=== PATIENT | female | born 1990 | race Caucasian/White ===

== ENCOUNTER 2019-08-02 11:47 | Emergency (ER) | payer MEDICAID, SELFPAY ==
--- NOTE | 2019-08-02 11:52 | W.ED.EXTPRO ---
HPI - Extremity Problem General: Chief complaint: Extremity Problem,Nontraumatic Stated complaint: L LEG PAIN Time Seen by Provider: 08/02/19 11:52 Source: patient Mode of arrival: ambulatory Limitations: no limitations History of Present Illness: HPI Narrative: 29-year-old female comes in today with left lower extremity pain. Patient reports pain since [place] with difficulty with ambulating at home. Patient reports that the pain is constant. Patient appears well. Patient appears in no acute distress. Patient is 35 weeks Review of Systems General: Reports: 10 or more systems reviewed and unremarkable except in HPI and below Musc: Reports: extremity pain PFSH ED PFSH: Social History Smoking and tobacco status: never smoked Physical Exam Const: COMMON NORMALS: no apparent distress and oriented x3 GENERAL APPEARANCE: cooperative HENMT: COMMON NORMALS: normocephalic, external ears normal, EAC's normal, TM's normal bilaterally and external nose normal HEAD & SCALP: normal to inspection and normocephalic FACE & SINUS: normal facial exam NOSE: external nose normal GENERAL EAR: hearing not grossly impaired EXTERNAL EAR: Yes external ears normal EXTERNAL AUDITORY CANAL: EAC's normal TYMPANIC MEMBRANE: TM's normal bilaterally MOUTH: oral and palatal mucosa normal THROAT: posterior oropharynx normal Eye: COMMON NORMALS: PERRL and EOMs intact bilaterally PUPIL: Yes PERRL Neck/C-Spine: COMMON NORMALS: full ROM and no lymphadenopathy Lymph: LYMPHATIC: no lymphedema noted Chest: COMMONS NORMALS: inspection of chest normal and palpation of chest normal Resp: COMMON NORMALS: normal respiratory effort and clear to auscultation bilaterally AUSCULTATION: clear to auscultation bilaterally Cardio: COMMON NORMALS: regular rate and regular rhythm RATE: regular rate RHYTHM: regular rhythm GI: COMMON NORMALS: normal to inspection, nondistended, normoactive bowel sounds and non-tender : COMMON NORMALS: Yes no CVA tenderness BLADDER/KIDNEY EXAM: Yes no CVA tenderness Back/Pelvis: COMMON NORMALS: no CVA tenderness and thoracic and lumbar spine normal to inspection Extremity: NARRATIVE EXTREMITY EXAM: Palpable tender nodule to the left posterior knee. No significant lower extremity edema or redness. Pulses are intact. Prompt capillary refill is noted distally. Patient is weightbearing with no difficulty with ambulation. GENERAL: Yes edema (mild left lower leg) Neuro: COMMON NORMALS: oriented x3, moves all extremities and no focal motor deficits Psych: COMMON NORMALS: mental status grossly normal and cooperative Skin: COMMON NORMALS: no rashes or lesions noted GENERAL SKIN EXAM: no rashes or lesions noted Course Vital Signs: Vital signs: Vital Signs Temperature 98.1 F 08/02/19 11:53 Pulse Rate 103 H 08/02/19 12:02 Respiratory Rate 16 08/02/19 12:19 Blood Pressure 122/82 08/02/19 12:02 Pulse Oximetry 100 08/02/19 12:02 MDM - Extremity (Nontraumatic) MDM Narrative: Medical decision making narrative: Patient comes in for increased pain and discomfort to the posterior knee of the left leg. Patient reported sudden onset of symptoms with minimal relief since it occurred on Saturday. On exam we feel light palpable nodule to the posterior left knee. No obvious redness and minimal swelling is noted to the lower extremity. Vital signs are normal. Differential diagnosis include but not limited to DVT, inflamed varicose vein, Barraza's cyst. Ultrasound of the extremity ruled out DVT and Barraza's cyst. Patient has some mild venous insufficiency that was noted on the ultrasound. I believe patient probably has a mild varicosity that is become inflamed or aneurysm causing the nodule to appear in the posterior left knee. Reviewed exam with patient with recommendations for further treatment and evaluation. Patient reports understanding. Discharge Plan Discharge Patient Disposition: Home, Self-Care Clinical Impression: Venous (peripheral) insufficiency Varicose vein leg preg-unsp Qualifiers: Trimester: third trimester Qualified Code(s): O22.03 - Varicose veins of lower extremity in , third trimester Condition: Stable Prescriptions: No Action Tylenol Extra Strength 500 mg Tablet 1,000 mg PO PRN RF: 0 famotidine 20 mg tablet 20 mg PO BID RF: 0 omeprazole 20 mg capsule,delayed release(DR/EC) 20 mg PO DAILY RF: 0 28 mg iron- 800 mcg Tablet 1 tab PO DAILY RF: 0 [place] (PF) See Rx Instructions .ROUTE .COMPLEX RF: 0 Discharge Orders: Discharge Order (Routine); Ordered 08/02/19 Ordered By: Hang Calderon Discharge Diet: Usual diet Discharge Activity: Increase activity as tolerated Patient Instructions: Varicose Veins (ED) Activity Restrictions/Additional Instructions: Wear good supportive stocking or hose Ice or heat to area for pain control Acetaminophen as needed for pain Elevate legs when sitting Drink plenty of water Follow-up with primary care Return to ER for worsening symptoms, high fever, or increased redness and swelling to lower leg Coding Level of Care Code ED Choral Director for Chg Fwd Exam Comprehensive
[2019-08-02 11:53] VITALS: BP 122/82; PULSE 103; RESP 16; TEMP 36.7; O2SAT 99; BMI 38.4
--- NOTE | 2019-08-02 12:00 | USR_ITS ---
PROCEDURE INFORMATION: Exam: US Duplex Left Lower Extremity Veins, Limited Exam date and time: 08/02/2019 12:02 PM Age: 29 years old Clinical indication: Pain; Leg, lower; Left; Additional info: Popliteal tenderness, pain with mild swelling TECHNIQUE: Imaging protocol: Real-time Duplex ultrasound of the Left Lower Extremity with 2-D pierre scale, color Doppler flow and spectral waveform analysis with image documentation. Limited exam focused on the left lower extremity veins. COMPARISON: No relevant prior studies available. FINDINGS: Left deep veins: No deep venous thrombosis in the visualized left common femoral, profunda femoris, superficial femoral, popliteal, peroneal, or posterior tibial veins. Venous insufficiency is noted in the left popliteal vein. Left superficial veins: Unremarkable. Saphenofemoral junction is patent without thrombus. Soft tissues: Unremarkable. US/CV venous duplex [facility] [id number] IMPRESSION: No deep venous thrombosis in the visualized left lower extremity.
--- NOTE | 2019-08-02 12:01 | USR_ITS ---
PROCEDURE INFORMATION: Exam: Limited ultrasound of the left popliteal fossa Exam date and time: 08/02/2019 12:29 PM Age: 29 years old Clinical indication: Patient status: Conscious; Pain: Pain behind left knee; Additional info: Swelling posterior left knee TECHNIQUE: Imaging protocol: Limited ultrasound of the left popliteal fossa with combined grayscale and color flow imaging. COMPARISON: No relevant prior studies available. FINDINGS: No pathologic mass or fluid collection in the visualized left popliteal fossa. US/US soft tissue/extremity [id number] IMPRESSION: No pathologic mass or fluid collection in the visualized left popliteal fossa.
[2019-08-02 12:02] VITALS: BP 122/82; PULSE 103; RESP 16; O2SAT 100
[2019-08-02 12:19] VITALS: RESP 16
--- NOTE | 2019-08-02 12:19 | PC.NURSE ---
US at bedside
[2019-08-02 13:40] VITALS: RESP 16
== END 2019-08-02 13:40 | disposition home or self-care (01) ==
PROVIDERS: Emergency Provider Nurse Practitioner Family
DX: O22.03 Varicose veins of lower extremity in pregnancy, third trimester (principal); Z3A.35 35 weeks gestation of pregnancy
CPT/HCPCS: 12345; 76882; 93971; 99281; 99282

== ENCOUNTER 2019-08-31 04:53 | Inpatient (IN) | payer MEDICAID, SELFPAY ==
[2019-08-31] VITALS (19 sets, daily range): BP systolic 82–115; BP diastolic 52–74; PULSE 61–99; RESP 16–18; TEMP 36.1–36.9; O2SAT 98–99; BMI 40.4
[2019-08-31] MEDS: lactated ringers 1,000 ML 999 ML IV (05:53)
[2019-08-31 05:54] LABS: Basophils % 0.3 %; Eosinophils # 0.1 10^3/uL (0.0-0.8); Eosinophils % 0.7 %; Hematocrit 31.8 % (37.0-47.0); Hemoglobin 10.2 g/dL (11.5-15.3); Lymphocytes # 3.2 10^3/uL (0.8-4.8); Lymphocytes % 26.9 %; Mean Corpuscular HGB Conc 32.1 g/dL (30.0-36.0); Mean Corpuscular Volume 93.5 fL (81-99); Mean Platelet Volume 10.7 fL (7.4-10.4); Monocytes # 0.7 10^3/uL (0.2-0.9); Monocytes % 5.5 %; Neutrophils # 7.8 10^3/uL (1.8-7.7); Neutrophils % 66.2 %; Nucleated Red Blood Cells % 0 %; Platelet Count 311 10^3/cmm (130-400); Red Cell Distribution Width 12.7 % (12.1-15.1); White Blood Count 11.7 10^3/uL (4.0-10.0)
--- NOTE | 2019-08-31 07:00 | PM.OBGYHP ---
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 Her has been unremarkable. Her lab work has been unremarkable with exception of initially being chlamydia positive. Her repeat chlamydia check was negative. Her blood type is O+. Present Details : 4 Para: 2 Date of Last Menstrual Period: 10/27/18 Calculated Date of Delivery: 08/03/19 Gestational Age Based on Last Menstrual Period: 44 Labs Rubella: Immune RPR: Negative GBS: Negative Review of Systems General: Reports: 10 or more systems reviewed and unremarkable except in HPI and below Const: Reports: fatigue; Denies: fever Eyes: Denies: change in vision Card: Reports: edema; Denies: chest pain GI: Reports: heartburn/indigestion Musc: Reports: back pain Adalid/Lymph: Denies: easy bruising Medications/Allergies Home Medications Medication Instructions Recorded Confirmed Last Taken Type [place] (PF) See Rx Instructions .ROUTE .COMPLEX 08/02/19 08/02/19 07/26/19 History PNV cmb#95-ferrous fumarate-FA 1 tab PO DAILY 08/02/19 08/31/19 08/30/19 18:00 History [] acetaminophen [Tylenol Extra 1,000 mg PO PRN 08/02/19 08/02/19 07/31/19 History Strength] famotidine 20 mg PO BID 08/02/19 08/31/19 1 Week Ago History ~08/24/19 omeprazole 20 mg PO DAILY 08/02/19 08/31/19 08/29/19 History Allergies Allergy/AdvReac Type Severity Reaction Status Date / Time No Known Allergies Allergy Verified 08/02/19 12:02 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 PFSH: Social History Smoking and tobacco status: never smoked Vitals/I&O/Wt Last Vital Signs Temp 97.6 F 08/31/19 05:10 Pulse 84 08/31/19 05:28 Resp 16 08/31/19 05:10 BP 113/66 08/31/19 05:28 Pulse Ox 99 08/31/19 05:27 Weight last 48 hrs Weight 228 lb Weight 228 lb Physical Exam Const: COMMON NORMALS: oriented x3 and alert HENMT: COMMON NORMALS: moist oral mucous membranes HEAD & SCALP: normal to inspection Chest: COMMONS NORMALS: inspection of chest normal Resp: COMMON NORMALS: clear to auscultation bilaterally AUSCULTATION: clear to auscultation bilaterally Cardio: COMMON NORMALS: regular rate and regular rhythm RATE: regular rate RHYTHM: regular rhythm GI: INSPECTION: Yes normal to inspection and Yes other (Gravid) Extremity: COMMON NORMALS: normal to inspection GENERAL: Yes edema (Trace) Neuro: COMMON NORMALS: oriented x3, moves all extremities and no sensory deficits noted SENSORIUM/ORIENTATION: Yes alert Psych: COMMON NORMALS: mental status grossly normal Skin: COMMON NORMALS: no rashes or lesions noted GENERAL SKIN EXAM: no rashes or lesions noted Data : 08/31/19 05:35 A&P Assessment and plan (1) History of : Proceed with routine section. I have discussed the risks with the patient both in outpatient clinic and this morning. She has no further questions and wishes to proceed. Status: Acute (2) 39 weeks gestation of : Status: Acute Attestations Medical Necessity Statement*: Anticipate routine and post care. Coding Level of Care Code Acute Antichecking Iron Worker for Esperanza Michelle Diagnoses History of Z98.891 39 weeks gestation of Z3A.39
[2019-08-31] MEDS: famotidine 20 mg/2 mL INJ IVP (07:06)
[2019-08-31] MEDS: metoclopramide 5 mg/mL SDV 2 mL 10 MG IVP (07:06)
[2019-08-31] MEDS: citric acid-sodium citrate 30 mL UDC PO (07:06)
--- NOTE | 2019-08-31 07:19 | ANES.PREANE2 ---
Pre-Anesthetic Assessment Pre-Anesthetic Assessment: Height/Weight: Height 1.6 m Weight 103.419 kg Temp Pulse Resp BP Pulse Ox 97.6 F 84 16 113/66 99 08/31/19 05:10 08/31/19 05:28 08/31/19 05:10 08/31/19 05:28 08/31/19 05:27 Preop Diagnosis: IUP 39weeks Proposed Procedure: repeat c/section Operation Date: 08/31/19 07:20 Proposed Procedures p Section Repeat(Not Applicable) - Chucky Hankins MD Familial anesthetic complications: denies Was Beta Hellen taken within 24 hours: N/A Last intake: Intake Last Liquid Date 08/30/19 Last Liquid Time 22:00 Last Solid Date 08/30/19 Last Solid Time 20:30 Social: Social History: No alcohol and No tobacco Exam: Pre-Anes Outpt Exam: alert, oriented x 3, clear to auscultation bilaterally and regular rate & rhythm Airway: Submandibular: WNL Cervical ROM: WNL MP: 1 History/ROS: No significant history except as noted Pulmonary: Pulmonary: None reported CV/HEM: CV/HEM: None reported : : None reported Hepatic: Hepatic: None reported GI: GI: GERD Metabolic: Metabolic: None reported Musc/skel: Musc/skel: None reported Neuropsych: Neuropsych: Anxiety Anesthetic Plan: ASA status: 2 Anesthesia: Anesthesia Evaluation and Regional (specify below) (SAB) Risk of > 500 ml blood loss (7ml/kg in children): Yes, adequate IV access and fluids planned PFSH Anesthesia PFSH: Social History Smoking and tobacco status: never smoked Female Reproductive History: Date of last menstrual period: 10/27/18 : 4 Data Anesthesia CBC & Chem 7: 08/31/19 05:35 Other Labs: Laboratory Results - last 48 hr 08/31/19 08/31/19 05:35 05:35 WBC 11.7 H RBC 3.40 L Hgb 10.2 L Hct 31.8 L MCV 93.5 MCH 30.0 MCHC 32.1 RDW 12.7 Plt Count 311 MPV 10.7 H Neut % (Auto) 66.2 Lymph % (Auto) 26.9 [place] % (Auto) 5.5 Eos % (Auto) 0.7 Baso % (Auto) 0.3 Neut # (Auto) 7.8 H Lymph # (Auto) 3.2 [place] # (Auto) 0.7 Eos # (Auto) 0.1 Baso # (Auto) 0.0 Nucleated RBC % (auto) 0 Nucleated RBCs # 0.0 Blood Type O Positive Rho(D) Type Positive Antibody Screen Negative Cardiac Studies: No Data to Display
--- NOTE | 2019-08-31 08:26 | P.OP_ITS ---
Operative Report Date of procedure: August 31, 2019 Pre-op Diagnosis: 1. IUP 39 weeks 2. History of lower transverse section Procedure Done: Lower transverse section Specimens removed/disposition: 1. Male with a weight of 7 pounds 8 ounces and Apgars of 9 and 9 2. Placenta with a three-vessel cord delivered intact Pathology: none sent Surgeon: Chucky Hankins Anesthesia: Epidural Estimated blood loss (mL): 800 Complications: None Condition: stable Disposition: floor Procedure: The patient was brought back to the operating room where she was pre pped and draped in usual sterile fashion. Anesthesia was found to be adequate. A lower transverse skin incision was then made with a #10 blade. I then dissected down to the underlying subcutaneous tissue until arriving at the prerectal fascia. The fascia was then nicked with the scalpel bilaterally. The fascial incisions were then carried laterally with Kelly scissors. Attention was then turned to the superior aspect of the incision which was grasped with kochers and tented up away from the underlying rectus abdominis muscles. The muscles were then dissected away from the fascia manually, and later with Kelly scissors. Attention was then turned to the inferior aspect of the incision, and the fascia was dissected away from the underlying muscle in similar fashion. The rectus abdominis muscles were then spread manually. The peritoneum was entered manually. Excellent visualization of the uterus was noted. A lower transverse uterine incision was then made with a #10 blade. Upon arriving at the intrauterine cavity, the uterine incision was then extended manually. The infant was noted to be in vertex position. The baby was delivered without difficulty. After delivery of the head, the mouth and nose were suctioned at the site of the incision. There was no meconium. There was no nuchal cord. The remainder of the body was then delivered and placed on the abdomen. The c ord was cut and clamped. The baby was then handed to the waiting nurse. The placenta was removed intact. The uterus was externalized. The intrauterine cavity was cleansed of any remaining debris. The uterine incision was reapproximated in 2 layers. The first layer was performed with 0 Vicryl in a running locked stitch. The second layer was an imbricating stitch also using 0 Vicryl. The uterus was replaced into the abdomen. The peritoneum was then irrigated with warm saline. I reexamined the uterine incision and found it to be hemostatic. The rectus abdominis muscles were then reapproximated using 0 Vicryl in a running stitch. The fascia was then reapproximated using 0 Vicryl in running stitch. The subcutaneous tissue was then reapproximated using 0 Vicryl in a running stitch. The skin was reapproximated using sanju. A sterile dressing was placed. All counts were correct x2. Both the mother and baby were in stable condition.
[2019-08-31] MEDS: ondansetron 2 mg/ML SDV 2 mL 4 MG IVP (12:18)
[2019-08-31] MEDS: ketorolac 30 mg/mL INJ IVP ×2 (13:59→20:24)
[2019-08-31] MEDS: dextrose 5%-lactated ringers 1,000 ML 125 ML IV (15:09)
[2019-08-31 21:10] LABS: Hematocrit 28.5 % (37.0-47.0); Hemoglobin 9.1 g/dL (11.5-15.3); Mean Corpuscular HGB Conc 31.9 g/dL (30.0-36.0); Mean Corpuscular Hemoglobin 31.4 pg (28.0-34.0); Mean Corpuscular Volume 98.3 fL (81-99); Mean Platelet Volume 10.6 fL (7.4-10.4); Platelet Count 246 10^3/cmm (130-400); White Blood Count 14.2 10^3/uL (4.0-10.0)
[2019-09-01] MEDS: HYDROcodone-acetaminophen 5-325 mg Tablet PO ×4 (01:08→15:50)
[2019-09-01 02:15] VITALS: BP 114/73; PULSE 78; RESP 16; TEMP 36.4
[2019-09-01 04:00] VITALS: BP 113/72; PULSE 86; RESP 16; TEMP 36.7
--- NOTE | 2019-09-01 06:50 | PM.OBGYDC ---
Discharge Providers DIRECTOR DENTAL SERVICES Date of Admission: 08/31/19 04:53 Date of Discharge: 09/01/19 Attending Provider at Admission: Chucky Hankins MD Attending Provider at Discharge: Chucky Hankins MD Diagnoses at Discharge Discharge Diagnosis (1) History of : Status: Acute (2) 39 weeks gestation of : Status: Acute Reason for Visit Reason for Visit: Reason For Visit: JACINTO 09/06/19 Hospital Course Hospital Course: The patient has had an unremarkable hospital stay. She was scheduled for a repeat section. The went very smoothly. Her course was also done smoothly. Her bleeding has been within normal limits. Her vitals have been also within normal limits. Her pain is been well controlled. She been breast-feeding her child well without complications. Information Peripartum Data: Delivery Method: Section Physical Exam Narrative: EXAM NARRATIVE: She is in no acute distress Lungs are clear auscultation bilaterally Her heart has a regular rate and rhythm Her fundus is below the umbilicus and firm Her dressing is clean, dry and intact Her extremities have trace edema Urinary Catheter Management^: [place]: Cath Placed During This Visit: yes, but has since been removed by the nurse Reason for Continuing Indwelling Catheter: Decision to DC Catheter Urinary Catheter Date of Insertion: 08/31/19 Urinary Catheter Time of Insertion: 07:30 Date Urinary Catheter Removed: 09/01/19 Time Urinary Catheter Discontinued: 01:15 Discharge Data Data Completed and Pending: Labs from last 24 hours 08/31/19 20:35 WBC 14.2 H RBC 2.90 L Hgb 9.1 L Hct 28.5 L MCV 98.3 D MCH 31.4 MCHC 31.9 RDW 13.0 Plt Count 246 MPV 10.6 H Vitals: Last Vital Signs Temp 97.5 F L 09/01/19 02:15 Pulse 78 09/01/19 02:15 Resp 16 09/01/19 02:15 BP 114/73 09/01/19 02:15 Pulse Ox 98 08/31/19 18:26 Discharge Plan Discharge Patient Disposition: Home, Self-Care Condition: Stable Prescriptions: New ibuprofen 800 mg Tablet 800 mg PO TID Qty: 45 RF: 0 hydrocodone-acetaminophen 5-325 mg Tablet 1 - 2 tab PO Q4H PRN (Reason: Moderate To Severe Pain) Qty: 30 RF: 0 Continued PNV cmb#95-ferrous fumarate-FA [] 28 mg iron- 800 mcg Tablet 1 tab PO DAILY RF: 0 Discontinued acetaminophen [Tylenol Extra Strength] 500 mg Tablet 1,000 mg PO PRN RF: 0 famotidine 20 mg tablet 20 mg PO BID RF: 0 omeprazole 20 mg capsule,delayed release(DR/EC) 20 mg PO DAILY RF: 0 [place] (PF) See Rx Instructions .ROUTE .COMPLEX RF: 0 Discharge Orders: Discharge Order (Routine); Ordered 09/01/19 Ordered By: Chucky Hankins Referrals: Chucky Hankins MD [Physician] - 09/04/19 (Please set up appointment for 6 weeks for check as well) Discharge Diet: Advance as tolerated and Usual diet Discharge Activity: Resume usual activity Discharge Attestations DIRECTOR DENTAL SERVICES Time Spent in Discharge Care*: less than 30 min Coding Level of Care Code Acute 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
[2019-09-01] MEDS: prenatal vitamin Capsule 1 CAP PO (08:47)
[2019-09-01] MEDS: docusate sodium 100 mg Capsule PO (08:47)
[2019-09-01 10:02] VITALS: BP 99/61; PULSE 93; RESP 18; TEMP 36.9; O2SAT 98
[2019-09-01] MEDS: ferrous sulfate EC 325 mg Tablet PO (15:51)
[2019-09-01 16:17] VITALS: BP 117/79; PULSE 90; RESP 18; TEMP 36.6; O2SAT 98
== END 2019-09-01 17:10 | disposition home or self-care (01) | DRG 788 ==
PROVIDERS: Admitting Provider Family Medicine; Visit Provider Family Medicine
PROC: 10D00Z1 Extraction of Products of Conception, Low, Open Approach (ICD-10-PCS; CPT 59514; principal; 2019-08-31 07:00)
DX: O34.211 Maternal care for low transverse scar from previous cesarean delivery (principal); Z3A.39 39 weeks gestation of pregnancy; Z37.0 Single live birth
CPT/HCPCS: 12345; 36415; 51702; 59025; 59409; 85025; 85027; 86850; 86900; 96375; J1885; J2274; J2370; J2405; J2590; J2765; J3490